=== PATIENT | male | born 1970 | race Caucasian/White ===

== ENCOUNTER 2017-04-21 01:40 | Emergency (ER) | payer OTHER ==
[~2017-04-21] VITALS: Ht 185.4 cm; Wt 130.6 kg
--- NOTE | 2017-04-21 01:40 | NUR ---
TO BED 2 BIB PARAMEDICS C/O HEADACHE X2 DAYS. +NAUSEA - VOMITING. PT AAOX4 NO ACUTE DISTRESS NOTED, RESP EVEN AND UNLABORED. 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 ER MD AT BEDSIDE TO EVAL PT WITH ORDERS RECEIVED.
[2017-04-21] MEDS ORDERED: METOCLOPRAMIDE HCL 10 MG/2 ML VIAL IV ONE (02:00)
[2017-04-21] MEDS ORDERED: TETRACAINE HCL/PF 0.5% UD 2 ML BOTTLE RIGHTEYE ONE (02:00)
[2017-04-21] MEDS ORDERED: diphenhydrAMINE HCL 50 MG/ML VIAL IV ONE (02:00)
[2017-04-21] MEDS ORDERED: diphenhydrAMINE HCL 50 MG/ML VIAL ONE (02:17)
[2017-04-21] MEDS ORDERED: METOCLOPRAMIDE HCL 10 MG/2 ML VIAL ONE (02:17)
[2017-04-21] MEDS ORDERED: TETRACAINE HCL/PF 0.5% UD 2 ML BOTTLE ONE (02:18)
--- NOTE | 2017-04-21 02:46 | NUR ---
PT ASLEEP, NO ACUTE DISTRESS NOTED, RESP EVEN AND UNLABORED. CALL LIGHT WITHIN REACH. WILL CONTINUE TO MONITOR PT CLOSELY.
--- NOTE | 2017-04-21 03:37 | NUR ---
PT ASLEEP, NO ACUTE DISTRESS NOTED, RESP EVEN AND UNLABORED. CALL LIGHT WITHIN REACH. WILL CONTINUE TO MONITOR PT CLOSELY. NO PAIN OR DISCOMFORT NOTED.
--- NOTE | 2017-04-21 04:39 | NUR ---
ER MD AT BEDSIDE TALKING TO PT REGARDING DISCHARGE.
--- NOTE | 2017-04-21 04:49 | NUR ---
TRANSPORT CALLED ([facility]) ETA 30-45MIN.
[2017-04-21 05:17] VITALS: BP 121/64
--- NOTE | 2017-04-21 05:17 | NUR ---
IV removed. Catheter intact and site benign. Pressure and 4x4 applied to site. No bleeding noted.
--- NOTE | 2017-04-21 05:18 | NUR ---
REPORT GIVEN TO EMT TRANSPORT.
== END 2017-04-21 05:19 | disposition home or self-care (01) ==
LOC: ER 01:45
DX: G43.909 Migraine, unspecified, not intractable, without status migrainosus (principal); F20.9 Schizophrenia, unspecified; I10 Essential (primary) hypertension; Z88.0 Allergy status to penicillin
CPT/HCPCS: 96374; 96375; 99284; A4606; J1200; J2765; Z7610